=== PATIENT | male | born 1980 | race Caucasian/White ===

== ENCOUNTER 2019-01-18 08:40 | Emergency (ER) | payer MEDICAID ==
[~2019-01-18] VITALS: Ht 188 cm; Wt 75.0 kg
[2019-01-18] MEDS ORDERED: LIDOCAINE HCL/PF 1% 10 MG/ML 5ML VIAL IJ ONE (09:15)
[2019-01-18] MEDS ORDERED: TETANUS, DIPHTHERIA, PERTUSSIS VAC/PF 0.5ML (>7YR OLD) IM ONE (09:15)
[2019-01-18 10:33] VITALS: BP 121/63
== END 2019-01-18 10:36 | disposition home or self-care (01) ==
LOC: ER 08:40
DX: L02.511 Cutaneous abscess of right hand (principal); L02.413 Cutaneous abscess of right upper limb; L02.414 Cutaneous abscess of left upper limb; F11.188 Opioid abuse with other opioid-induced disorder; Z23 Encounter for immunization
CPT/HCPCS: 10061; 90471; 90715; 99284; J3490; 99283